=== PATIENT | male | born 1975 | race Caucasian/White ===

== ENCOUNTER 2016-12-28 16:28 | Emergency (ER) | payer OTHER ==
[2016-12-28 16:38] VITALS: BP 105/80; PULSE 78; RESP 18; TEMP 97.9
--- NOTE | 2016-12-28 16:47 | ED ---
General Adult HPI - General Chief complaint: Extremity Injury, Upper Stated complaint: Wrist Pain Time Seen by Provider: 12/28/16 16:38 Source: patient Mode of arrival: ambulatory Limitations: no limitations - History of Present Illness Initial comments: 41-year-old male patient presents to emergency department today for evaluation of left wrist pain. He states the pain radiates into his thumb. Patient denies any injury, states that it has been bothering him for the last 2 weeks. Patient states that it hurts when he presses over the area as well as when he grasps objects, or extends his wrist. 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 He denies any redness or swelling to the joint. He denies any fever, chills, rash or any other physical symptoms or concerns. - Related Data Previous Rx's Medication Instructions Recorded Ibuprofen [Motrin] 600 mg PO Q8HR PRN #30 tab 11/30/14 Dexamethasone 0.75 mg PO DIRECTED #12 tab 05/10/16 Famotidine [Pepcid] 20 mg PO BID #15 tablet 05/10/16 Ibuprofen [Motrin] 600 mg PO Q6HR PRN #20 tab 12/28/16 Allergies Allergy/AdvReac Type Severity Reaction Status Date / Time methylphenidate HCl Allergy Confusion Verified 12/28/16 16:37 [From Ritalin] Review of Systems ROS Statement: Those systems with pertinent positive or pertinent negative responses have been documented in the HPI. ROS Other: All systems not noted in ROS Statement are negative. Past Medical History Past Medical History: No Reported History History of Any Multi-Drug Resistant Organisms: None Reported Past Surgical History: No Surgical Hx Reported Past Psychological History: No Psychological Hx Reported Smoking Status: Current every day smoker Past Alcohol Use History: Rare Past Drug Use History: None Reported General Exam Limitations: no limitations General appearance: alert, in no apparent distress Respiratory exam: Present: normal lung sounds bilaterally. Absent: respiratory distress, wheezes, rales, rhonchi, stridor Cardiovascular Exam: Present: regular rate, normal rhythm, normal heart sounds. Absent: systolic murmur, diastolic murmur, rubs, gallop, clicks Extremities exam: Present: normal inspection, full ROM, normal capillary refill , other (No erythema, no swelling, no rash. Patient is tender over the radial head. Positive Domo test.). Absent: tenderness, pedal edema, joint swelling, calf tenderness Back exam: Present: normal inspection Neurological exam: Present: alert, oriented X3, CN II-XII intact Psychiatric exam: Present: normal affect, normal mood Skin exam: Present: warm, dry, intact, normal color. Absent: rash Course Vital Signs 12/28/16 16:32 Temperature 97.9 F Pulse Rate 78 Respiratory 18 Rate Blood Pressure 105/80 O2 Sat by Pulse 98 Oximetry Medical Decision Making - Medical Decision Making 41-year-old male patient presents to emergency department today for evaluation of atraumatic left wrist pain. Patient physical exam did reveal tenderness over the radial head, positive Domo test. Patient discharged home with a diagnosis of de Quervain's tenosynovitis, he will be given a prescription for ibuprofen and a prescription for a thumb spica splint. He is instructed to follow-up with orthopedics if anti-inflammatories and splinting does not improve his symptoms. Patient has seen physicians and orthopedic associates in the past and requests their office. Instructed to return immediately for any new, worsening, or concerning symptoms. Disposition Clinical Impression: De Quervain's tenosynovitis, left Disposition: HOME SELF-CARE Condition: Good Instructions: Tendinitis (ED) Additional Instructions: Take ibuprofen for pain control. Wear brace whenever possible. Follow-up with orthopedics if symptoms persist despite use of anti-inflammatories. Follow-up with primary care physician for recheck in one to 2 days. Prescriptions: Ibuprofen [Motrin] 600 mg PO Q6HR PRN #20 tab PRN Reason: Pain Referrals: Abdiel Lilly MD [Primary Care Provider] - 1-2 days Casa Alvarez DO [Doctor of Osteopathic Medicine] - 1-2 days Time of Disposition: 16:48
== END 2016-12-28 17:00 | disposition home or self-care (01) ==
LOC: EC 16:28
DX: M65.4 Radial styloid tenosynovitis [de Quervain] (principal); F17.200 Nicotine dependence, unspecified, uncomplicated; Z88.8 Allergy status to other drugs, medicaments and biological substances
CPT/HCPCS: 99283

== ENCOUNTER 2017-02-21 22:10 | Emergency (ER) | payer OTHER ==
[2017-02-21 22:37] VITALS: BP 110/68; PULSE 85; RESP 16; TEMP 99.7
--- NOTE | 2017-02-22 00:14 | ED ---
Skin/Abscess/FB HPI - General Chief complaint: Skin/Abscess/Foreign Body Stated complaint: L hand infection Time Seen by Provider: 02/21/17 23:47 Source: patient Mode of arrival: ambulatory Limitations: no limitations - History of Present Illness Initial comments: patient presents with swelling at base of left middle finger nailbed. Patient states it's red, swollen, tender to palpation. Patient states he has been poking it daily and it has drained pus. Patient states symptoms having ongoing for 1 week. 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 Patient denies numbness, weakness in the hand. Patient denies decreased range of motion in the finger. Patient denies diabetes or immunocompromise. Denies fevers, chills, nausea, vomiting. - Related Data Previous Rx's Medication Instructions Recorded Ibuprofen [Motrin] 600 mg PO Q8HR PRN #30 tab 11/30/14 Dexamethasone 0.75 mg PO DIRECTED #12 tab 05/10/16 Famotidine [Pepcid] 20 mg PO BID #15 tablet 05/10/16 Ibuprofen [Motrin] 600 mg PO Q6HR PRN #20 tab 12/28/16 Amoxicillin/Potassium Clav 1 tab PO Q12HR 5 Days 02/22/17 [Augmentin 875-125 Tablet] Allergies Allergy/AdvReac Type Severity Reaction Status Date / Time methylphenidate HCl Allergy Confusion Verified 02/21/17 22:37 [From Ritalin] Review of Systems ROS Statement: Those systems with pertinent positive or pertinent negative responses have been documented in the HPI. ROS Other: All systems not noted in ROS Statement are negative. Constitutional: Denies: fever, chills, weakness Respiratory: Denies: cough, dyspnea Cardiovascular: Denies: chest pain Endocrine: Denies: fatigue Gastrointestinal: Denies: abdominal pain, nausea, vomiting Skin: Reports: lesions, change in color Neurological: Denies: weakness, numbness, paresthesias Past Medical History Past Medical History: No Reported History History of Any Multi-Drug Resistant Organisms: None Reported Past Surgical History: No Surgical Hx Reported Past Psychological History: No Psychological Hx Reported Smoking Status: Current every day smoker Past Alcohol Use History: Rare Past Drug Use History: None Reported General Exam - General Exam Comments Initial Comments: sitting up on side of bed. No acute distress. Well-appearing. Calm, pleasant. Conversing normally. Limitations: no limitations General appearance: alert, in no apparent distress Head exam: Present: atraumatic, normocephalic Eye exam: Present: normal appearance, EOMI ENT exam: Present: normal external ear exam Neck exam: Present: normal inspection Respiratory exam: Present: normal lung sounds bilaterally Cardiovascular Exam: Present: regular rate, normal rhythm GI/Abdominal exam: Absent: distended Extremities exam: Present: full ROM, normal capillary refill. Absent: joint swelling Neurological exam: Present: alert, oriented X3 Psychiatric exam: Present: normal affect, normal mood Skin exam: Present: other (erythematous fluctuant swelling base of left middle finger nail and lateral side of fingernail. No active drainage.) Course Vital Signs 02/21/17 22:34 Temperature 99.7 F H Pulse Rate 85 Respiratory 16 Rate Blood Pressure 110/68 O2 Sat by Pulse 99 Oximetry Procedures - Incision & Drainage Consent Obtained: verbal consent Time Out Performed?: Yes Site: other (left index finger) Anesthetic Used: lidocaine 1% Amount (mLs): 4 I&D Cleaning Method: Alcohol Wipe Sterile Field Used?: Yes Scalpel Used: #15 Needle Aspiration Performed?: No I&D Drainage Obtained: Pus Culture Obtained?: No Patient Tolerated Procedure: well (Sterild gauze, bacitracin, applied. ) Medical Decision Making - Medical Decision Making his current exam findings consistent with paronychia. Patient was numbed with lidocaine, I&D drained significant amount of pus. Patient has no edema of the finger, able to flex the finger, range of motion in finger intact. Fingers neurovascularly intact. No medial tendon tenderness to palpation. tolerated I&D well. Wound dressed with bacitracin and Band-Aid. Patient given wound care instructions, including keeping wound clean and dry. Patient instructed to wear gloves at work, avoid prolonged periods of wearing gloves. Patient given prescription of antibiotics. Patient agrees to follow up with his primary care physician within 2 days for wound check. Disposition Clinical Impression: Paronychia Disposition: HOME SELF-CARE Condition: Good Instructions: Abscess Incision and Drainage (ED) Additional Instructions: Makes appointment with your primary care doctor within 2 days for wound check. Prescriptions: Amoxicillin/Potassium Clav [Augmentin 875-125 Tablet] 1 tab PO Q12HR 5 Days Referrals: Abdiel Lilly MD [Primary Care Provider] - 1-2 days
--- NOTE | 2017-02-22 00:42 | XR ---
EXAMINATION TYPE: XR finger LT DATE OF EXAM: 02/22/2017 COMPARISON: NONE HISTORY: Pain and swelling TECHNIQUE: 3 views middle finger FINDINGS: I see no fracture nor dislocation. There is no sign of radiopaque foreign body. There is soft tissue swelling at the nailbed. IMPRESSION: Soft tissue swelling. No fracture.
== END 2017-02-22 01:35 | disposition home or self-care (01) ==
LOC: EC 22:10
DX: L03.012 Cellulitis of left finger (principal); F17.200 Nicotine dependence, unspecified, uncomplicated; Z88.8 Allergy status to other drugs, medicaments and biological substances
CPT/HCPCS: 10060; 99283

== ENCOUNTER 2018-05-14 18:58 | Emergency (ER) | payer OTHER ==
[2018-05-14 19:30] VITALS: RESP 18
--- NOTE | 2018-05-14 20:17 | XR ---
EXAMINATION TYPE: XR chest 2V DATE OF EXAM: 05/14/2018 COMPARISON: 05/10/2016 HISTORY: Cold and cough TECHNIQUE: Frontal and lateral views of the chest are obtained. FINDINGS: Heart and mediastinum are normal. Lungs are clear. Diaphragm is normal. Bony thorax appear s normal. IMPRESSION: Normal chest. No change.
--- NOTE | 2018-05-14 20:45 | ED ---
URI HPI - General Source: patient Mode of arrival: ambulatory Limitations: no limitations <Joanie Tomas - Last Filed: 05/15/18 00:40> <Qiana Segura - Last Filed: 05/19/18 02:09> - General Chief Complaint: Upper Respiratory Infection Stated Complaint: Coughing Time Seen by Provider: 05/14/18 20:29 - History of Present Illness Initial Comments: 42-year-old male who denies past medical history per day smoker presented today for chief complaint of cough and congestion times one week. Patient denies any fever. He doesn't that to coughing for the past week, he states this increases at night. Patient denies any productive sputum production, fever or chills or rigors. Patient denies body aches. Patient does admit to sore throat he feels is secondary to cough. Patient denies any chest pain, dyspnea or dyspnea on exertion. Patient denies any hemoptysis. Patient denies abdominal pain, diarrhea, nausea, vomiting or any other social symptoms. Patient states that everyone in the household with similar symptoms. Remainder of ROS negative, patient denies any ear pain, sinus pressure numbness or tingling, dysuria or hematuria, constipation or diarrhea, headaches or visual changes, or any other complaints. Upon arrival patient is well-appearing, vital signs within acceptable limits. (Joanie Tomas) - Related Data Previous Rx's Medication Instructions Recorded Cyclobenzaprine [Flexeril] 10 mg PO TID PRN #15 tab 03/31/18 Ibuprofen [Motrin] 600 mg PO Q8HR PRN #30 tab 03/31/18 Benzonatate [Tessalon Perles] 100 mg PO TID 3 Days #9 cap 05/14/18 Ipratropium [place] 0.06%Nasal 2 spray EA NOSTRIL BID 4 Days #1 05/14/18 [Atrovent Nasal 0.06%] bottle Allergies Allergy/AdvReac Type Severity Reaction Status Date / Time methylphenidate HCl AdvReac Confusion Verified 05/14/18 19:30 [From Ritalin] Review of Systems ROS Other: All systems not noted in ROS Statement are negative. <Joanie Tomas - Last Filed: 05/15/18 00:40> ROS Other: All systems not noted in ROS Statement are negative. <Qiana Segura Last Filed: 05/19/18 02:09> ROS Statement: Those systems with pertinent positive or pertinent negative responses have been documented in the HPI. Past Medical History Past Medical History: No Reported History Additional Past Medical History / Comment(s): pt has chronic neck back pain History of Any Multi-Drug Resistant Organisms: None Reported Past Surgical History: No Surgical Hx Reported Past Psychological History: ADD/ADHD Smoking Status: Current every day smoker Past Alcohol Use History: Rare Past Drug Use History: None Reported <Joanie Tomas L - Last Filed: 05/15/18 00:40> General Exam Limitations: no limitations <Joanie Tomas L - Last Filed: 05/15/18 00:40> <Qiana Segura P - Last Filed: 05/19/18 02:09> - General Exam Comments Initial Comments: General: The patient is awake and alert, in no distress, and does not appear acutely ill. Eye: Pupils are equal, round and reactive to light, extra-ocular movements are intact. No nystagmus. There is normal conjunctiva bilaterally. No signs of icterus. Ears, nose, mouth and throat: There are moist mucous membranes and no oral lesions. Oropharynx was not erythematous, no tonsillar enlargement exudates or lesion. Uvula midline. Tympanic membranes are not erythematous no bulging retractions effusions or tympanic membrane perforation. External auditory canal is nonedematous or erythematous. No pain to palpation the mastoid. No sinus pressure of the frontal or maxillary sinuses. Postnasal drip noted. Neck: The neck is supple, there is no tenderness or JVD. No anterior cervical lymphadenopathy. Cardiovascular: There is a regular rate and rhythm. No murmur, rub or gallop is appreciated. Respiratory: Lungs are clear to auscultation, respirations are non-labored, breath sounds are equal. No wheezes, stridor, rales, or rhonchi. No signs of consolidation on examination. Audible dry cough on exam. Gastrointestinal: Soft, non-distended, non-tender abdomen without masses or organomegaly noted. There is no rebound or guarding present. No CVA tenderness. Bowel sounds are unremarkable. Musculoskeletal: Normal ROM, no tenderness. Strength 5/5. Sensation intact. Radial pulses equal bilaterally 2+. Neurological: A&O x 3. CN II-XII intact, There are no obvious motor or sensory deficits. Coordination appears grossly intact. Speech is normal. Skin: Skin is warm and dry and no rashes or lesions are noted. Psychiatric: Cooperative, appropriate mood & affect, normal judgment. (Joanie Tomas) Vital Signs 05/14/18 05/14/18 19:28 20:53 Temperature 98.2 F 97.6 F Pulse Rate 83 66 Respiratory 18 18 Rate Blood Pressure 112/57 126/72 O2 Sat by Pulse 96 98 Oximetry Medical Decision Making <Joanie Tomas - Last Filed: 05/15/18 00:40> <Qiana Segura - Last Filed: 05/19/18 02:09> - Medical Decision Making At this time I do feel patient has bronchitis, upper respiratory infection. No areas of consolidation noted on examination. Patient appears well, nontoxic. Examination revealed postnasal drip and clear rhinorrhea. Chest x-ray negative. Patient was given medications for symptomatic treatment. I do feel patient is stable for discharge with primary care follow-up in the next 1-2 days. Return parameters discussed at length the patient who verbalized understanding. Patient was discharged in stable condition after discussing the case in detail with attending physician. Who agreed impression and plan. Patient discharged in stable condition appearing well. Denied questions at this time. (Joanie Tomas) I was available for consultation in the emergency department. The history and physical exam were done by the midlevel provider. I was consulted for this patient's care. I reviewed the case with the midlevel provider and based on their presentation of the patient, I agree with the assessment, medical decision making and plan of care as documented. (Qiana Segura) Disposition Is patient prescribed a controlled substance at d/c from ED?: No Time of Disposition: 20:45 <Joanie Tomas - Last Filed: 05/15/18 00:40> <Qiana Segura - Last Filed: 05/19/18 02:09> Clinical Impression: Bronchitis, Upper respiratory disease Disposition: HOME SELF-CARE Condition: Good Instructions: Upper Respiratory Infection (ED), Acute Bronchitis (ED) Additional Instructions: Please use medication as discussed. Please follow-up with family doctor in the next 2 days. Please return to emergency room if the symptoms increase or worsen or for any other concerns. Prescriptions: Benzonatate [Tessalon Perles] 100 mg PO TID 3 Days #9 cap Ipratropium [place] 0.06%Nasal [Atrovent Nasal 0.06%] 2 spray EA NOSTRIL BID 4 Days #1 bottle Referrals: Abdiel Lilly MD [Primary Care Provider] - 1-2 days
[2018-05-14 20:54] VITALS: BP 126/72; PULSE 66; TEMP 97.6
== END 2018-05-14 21:05 | disposition home or self-care (01) ==
LOC: EC 18:58
DX: J40 Bronchitis, not specified as acute or chronic (principal); J06.9 Acute upper respiratory infection, unspecified; F17.200 Nicotine dependence, unspecified, uncomplicated; Z88.8 Allergy status to other drugs, medicaments and biological substances
CPT/HCPCS: 71046; 99283

== ENCOUNTER 2018-09-13 18:31 | Emergency (ER) | payer OTHER ==
[2018-09-13 18:37] VITALS: BP 124/83; PULSE 88; RESP 18; TEMP 98.1
[2018-09-13] MEDS ORDERED: SODIUM CHLORIDE 0.9% 1,000 ML IV STA (18:45)
[2018-09-13 18:51] LABS: Glucose,Whole Blood 145 mg/dL (75-99)
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
[2018-09-13 19:12] LABS: Basophils # (A) 0.1 k/uL (0-0.2); Basophils % (A) 1 %; Eosinophils # (A) 0.1 k/uL (0-0.7); Eosinophils % (A) 2 %; HCT 40.3 % (39.0-53.0); Lymphocytes # (A) 2.1 k/uL (1.0-4.8); Lymphocytes % (A) 27 %; MCH 30.9 pg (25.0-35.0); MCHC 34.7 g/dL (31.0-37.0); MCV 89.1 fL (80.0-100.0); Mean Platelet Volume 7.1; Monocytes # (A) 0.5 k/uL (0-1.0); Monocytes % (A) 6 %; Neutrophils % (A) 64 %; Platelet Count 247 k/uL (150-450); RBC 4.52 m/uL (4.30-5.90); RDW 13.3 % (11.5-15.5); WBC 7.9 k/uL (3.8-10.6)
[2018-09-13 19:20] LABS: Creatine Kinase 153 U/L (55-170)
[2018-09-13 19:22] LABS: ALT 26 U/L (21-72); AST 23 U/L (17-59); Albumin 4.4 g/dL (3.5-5.0); Alcohol <10 mg/dL; Alkaline Phosphatase 70 U/L (38-126); Amylase 51 U/L (30-110); Anion Gap 9 mmol/L; Blood Urea Nitrogen 12 mg/dL (9-20); Calcium 9.4 mg/dL (8.4-10.2); Carbon Dioxide 22 mmol/L (22-30); Chloride 107 mmol/L (98-107); Glucose 124 mg/dL (74-99); Lipase 78 U/L (23-300); Potassium 3.6 mmol/L (3.5-5.1); Sodium 138 mmol/L (137-145); Total Bilirubin 0.3 mg/dL (0.2-1.3)
[2018-09-13 19:23] LABS: INR 0.9 (<1.2); Partial Thromboplastin Time 23.3 sec (22.0-30.0)
[2018-09-13 19:32] LABS: Creatine Kinase MB 1.4 ng/mL (0.0-2.4); Troponin I <0.012 ng/mL (0.000-0.034)
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
== END 2018-09-13 21:00 | disposition home or self-care (01) ==
LOC: EC 18:31
DX: R07.89 Other chest pain (principal); R10.9 Unspecified abdominal pain; M25.552 Pain in left hip; F17.200 Nicotine dependence, unspecified, uncomplicated; Z88.8 Allergy status to other drugs, medicaments and biological substances; V86.05XA Driver of 3- or 4- wheeled all-terrain vehicle (ATV) injured in traffic accident, initial encounter; Y93.89 Activity, other specified; Y92.89 Other specified places as the place of occurrence of the external cause
CPT/HCPCS: 36415; 86900; 86901; 80053; 82150; 82550; 82553; 83605; 83690; 84484; 85025; 85610; 85730; 86850; 72170; 71045; 72125; 70450; 71260; 74177; 99285; 96360; G0480; Q9967; 80320

== ENCOUNTER → 2019-04-02 | Outpatient (CLI) | payer OTHER ==
--- NOTE | 2019-04-02 14:21 | XR ---
Right wrist and right hand HISTORY: Right wrist pain 4 views of the right wrist correlated to 3 views of the right hand Possible bone island present in the distal ulna, distal metacarpal. Bone mineralization, joint spaces and alignment otherwise maintained. No fracture or dislocation. IMPRESSION: No significant abnormality
== END | disposition home or self-care (01) ==
LOC: RADXRMAIN 12:04
PROVIDERS: ATTEND Physician Assistant
DX: M25.531 Pain in right wrist (principal)

== ENCOUNTER 2019-07-04 21:23 | Emergency (ER) | payer OTHER ==
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
--- NOTE | 2019-07-04 22:25 | XR ---
EXAMINATION TYPE: XR ankle complete RT DATE OF EXAM: 07/04/2019 COMPARISON: NONE HISTORY: Pain TECHNIQUE: 3 views FINDINGS: Ankle mortise is anatomic. There is soft tissue swelling over the lateral malleolus. I see no fracture. There is calcaneal spurring. IMPRESSION: Soft tissue swelling. No acute fracture seen. Calcification at the medial malleolus consi stent with old injury.
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
[2019-07-04 22:55] VITALS: BP 122/84; PULSE 80; RESP 18; TEMP 98.4
== END 2019-07-04 22:45 | disposition home or self-care (01) ==
LOC: EC 21:23
DX: S93.401A Sprain of unspecified ligament of right ankle, initial encounter (principal); F17.200 Nicotine dependence, unspecified, uncomplicated; Z88.8 Allergy status to other drugs, medicaments and biological substances; X50.1XXA Overexertion from prolonged static or awkward postures, initial encounter; Y92.89 Other specified places as the place of occurrence of the external cause; Y93.39 Activity, other involving climbing, rappelling and jumping off
CPT/HCPCS: 29515; 99283

== ENCOUNTER 2021-10-09 15:26 | Emergency (ER) | payer OTHER ==
[2021-10-09 16:44] VITALS: BP 115/72; PULSE 82; RESP 18; TEMP 98
--- NOTE | 2021-10-09 17:05 | XR ---
EXAMINATION TYPE: XR chest 2V DATE OF EXAM: 10/09/2021 COMPARISON: 09/13/2018 HISTORY: Chest pain TECHNIQUE: FINDINGS: Heart and mediastinum are normal. Lungs are clear. Diaphragm is normal. Bony thorax appears normal. IMPRESSION: Normal chest. No change.
== END 2021-10-09 19:16 | disposition left against medical advice (07) ==
LOC: EC 15:26
DX: Z53.21 Procedure and treatment not carried out due to patient leaving prior to being seen by health care provider (principal); R07.9 Chest pain, unspecified
CPT/HCPCS: 71046

== ENCOUNTER 2022-08-24 22:22 | Emergency (ER) | payer OTHER ==
--- NOTE | 2022-08-24 22:25 | ED ---
General Adult HPI <Mellissa Altman - Last Filed: 08/24/22 22:24> - General Source: patient, RN notes reviewed Mode of arrival: ambulatory Limitations: no limitations <Zhang Guillermo - Last Filed: 08/25/22 03:59> - General Stated complaint: Abdominal Pain Time Seen by Provider: 08/24/22 22:24 - History of Present Illness Initial comments: 46-year-old male with no significant past medical history presents the emergency department with a chief complaint of left lower quadrant abdominal pain for " a couple of days." Denies fever, chills, nausea vomiting. Denies melena or hematochezia. (Mellissa Altman) 46-year-old male presents emergency Department with chief complaint of abdominal pain. Patient states started the other day at work. He felt that he injured himself moving or lifting something. Patient states pain is worsened. Patient denies any change in bowel habits no dysuria no hematuria denies any nausea vomiting no prior abdominal surgeries no history of diverticulitis. (Zhang Guillermo) - Related Data Previous Rx's Medication Instructions Recorded Ibuprofen 800 mg PO TID #20 tablet 07/04/19 Amoxic-Pot Clav 875-125Mg 1 tab PO Q12HR #20 tab 08/25/22 [Augmentin 875-125] Allergies Allergy/AdvReac Type Severity Reaction Status Date / Time methylphenidate HCl AdvReac Confusion Verified 08/24/22 23:34 [From Ritalin] Review of Systems ROS Other: All systems not noted in ROS Statement are negative. <Mellissa Altman - Last Filed: 08/24/22 22:24> ROS Other: All systems not noted in ROS Statement are negative. <Zhang Guillermo - Last Filed: 08/25/22 03:59> ROS Statement: Those systems with pertinent positive or pertinent negative responses have been documented in the HPI. Past Medical History Past Medical History: No Reported History Additional Past Medical History / Comment(s): pt has chronic neck back pain History of Any Multi-Drug Resistant Organisms: None Reported Past Surgical History: No Surgical Hx Reported Past Psychological History: ADD/ADHD Smoking Status: Current every day smoker Past Alcohol Use History: Rare Past Drug Use History: None Reported <Mellissa Altman - Last Filed: 08/24/22 22:24> General Exam <Mellissa Altman - Last Filed: 08/24/22 22:24> General appearance: alert, in no apparent distress Head exam: Present: atraumatic, normocephalic, normal inspection Respiratory exam: Present: normal lung sounds bilaterally. Absent: respiratory distress, wheezes, rales, rhonchi, stridor Cardiovascular Exam: Present: regular rate, normal rhythm, normal heart sounds. Absent: systolic murmur, diastolic murmur, rubs, gallop, clicks GI/Abdominal exam: Present: soft, tenderness (Left lower quadrant), normal bowel sounds. Absent: distended, guarding, rebound, rigid Back exam: Absent: CVA tenderness (R), CVA tenderness (L) Neurological exam: Present: alert <Zhang Guillermo - Last Filed: 08/25/22 03:59> - General Exam Comments Initial Comments: Visual Physical Exam Vital signs reviewed General: Well-appearing, nontoxic, no acute distress. Head: Normocephalic, atraumatic Eyes: PERRLA, EOMI ENT: Airway patent Chest: Nonlabored breathing Skin: No visual rash, normal skin tone Neuro: Alert and oriented 3 Musculoskeletal: No gross abnormalities (Mellissa Altman) Course Vital Signs 08/24/22 23:31 Temperature 98.0 F Pulse Rate 85 Respiratory 20 Rate Blood Pressure 113/74 O2 Sat by Pulse 99 Oximetry Medical Decision Making - Lab Data Result diagrams: 08/24/22 23:46 08/24/22 23:46 <Zhang Guillermo - Last Filed: 08/25/22 03:59> - Medical Decision Making Was pt. sent in by a medical professional or institution (, PA, TELEPHONE CLEANER, urgent care, hospital, or assisted...) When possible be specific @ -No Did you speak to anyone other than the patient for history (EMS, parent, family, police, friend...)? What history was obtained from this source @ -No Did you review nursing and triage notes (agree or disagree)? Why? @ -I reviewed and agree with nursing and triage notes Were old charts reviewed (outside hosp., previous admission, EMS record, old EKG, old radiological studies, urgent care reports/EKG's, assisted records)? Report findings @ -No old charts were reviewed Differential Diagnosis (chest pain, altered mental status, abdominal pain women, abdominal pain men, vaginal bleeding, weakness, fever, dyspnea, syncope, headache, dizziness, GI bleed, back pain, seizure, CVA, palpatations, mental health, musculoskeletal)? @ -nDifferential Abdominal Pain Women: Appendicitis, Cholecystitis, diverticulosis, ischemic bowel, pancreatitis, hepatitis, UTI, gastroenteritis, AAA, incarcerated hernia, bowel obstruction, constipation, inflammatory bowel, hepatitis, peptic ulcer disease, splenic infarction, perforated viscus, vulvitis, ovarian torsion, PID, kidney stone, placenta abruption, this is not meant to be an all-inclusive listle EKG interpreted by me (3pts min.). @ -None X-rays interpreted by me (1pt min.). @ -None done CT interpreted by me (1pt min.). @ -CT shows evidence of inflammatory changes of the sigmoid colon still with i nfectious or inflammatory colitis U/S interpreted by me (1pt. min.). @ -None done What testing was considered but not performed or refused? (CT, X-rays, U/S, labs)? Why? @ -None What meds were considered but not given or refused? Why? @ -None Did you discuss the management of the patient with other professionals (professionals i.e. , PA, TELEPHONE CLEANER, lab, RT, psych nurse, social work associate, health insurance adjuster, teacher, corporate banking officer, family caseworker)? Give summary @ -No Was smoking cessation discussed for >3mins.? @ -No Was critical care preformed (if so, how long)? @ -No Were there social determinants of health that impacted care today? How? (Homelessness, low income, unemployed, alcoholism, drug addiction, transportation, low edu. Level, literacy, decrease access to med. care, fdc, rehab)? @ -No Was there de-escalation of care discussed even if they declined (Discuss DNR or withdrawal of care, Hospice)? DNR status @ -No What co-morbidities impacted this encounter? (DM, HTN, Smoking, COPD, CAD, Cancer, CVA, ARF, Chemo, Hep., AIDS, mental health diagnosis, sleep apnea, morbid obesity)? @ -None Was patient admitted / discharged? Hospital course, mention meds given and route, prescriptions, significant lab abnormalities, going to OR and other pe rtinent info. @ -Discharged patient has evidence of colitis on CT. This may be infectious patient was started on Augmentin, currently diet and follow-up with GI. Undiagnosed new problem with uncertain prognosis? @ -No Drug Therapy requiring intensive monitoring for toxicity (Heparin, Nitro, Insulin, Cardizem)? @ -No Were any procedures done? @ -No Diagnosis/symptom? @ -Colitis, abdominal pain Acute, or Chronic, or Acute on Chronic? @ -Acute Uncomplicated (without systemic symptoms) or Complicated (systemic symptoms)? @ -Uncomplicated Side effects of treatment? @ -No Exacerbation, Progression, or Severe Exacerbation? @ -No Poses a threat to life or bodily function? How? (Chest pain, [place], [place], pneumonia, PE, COPD, DKA, ARF, appy, cholecystitis, CVA, Diverticulitis, Homicidal, Suicidal, threat to staff... and all critical care pts) @ -No (Zhang Guillermo) - Lab Data Lab Results 08/24/22 08/24/22 08/25/22 Range/Units 23:46 23:46 01:20 WBC 8.6 (3.8-10.6) k/uL RBC 4.31 (4.30-5.90) m/uL Hgb 14.1 (13.0-17.5) gm/dL Hct 39.2 (39.0-53.0) % MCV 91.0 (80.0-100.0) fL MCH 32.6 (25.0-35.0) pg MCHC 35.8 (31.0-37.0) g/dL RDW 12.4 (11.5-15.5) % Plt Count 230 (150-450) k/uL MPV 7.3 Neutrophils % 52 % Lymphocytes % 38 % Monocytes % 5 % Eosinophils % 3 % Basophils % 0 % Neutrophils # 4.5 (1.3-7.7) k/uL Lymphocytes # 3.3 (1.0-4.8) k/uL Monocytes # 0.5 (0-1.0) k/uL Eosinophils # 0.2 (0-0.7) k/uL Basophils # 0.0 (0-0.2) k/uL Sodium 139 (137-145) mmol/L Potassium 4.0 (3.5-5.1) mmol/L Chloride 110 H (98-107) mmol/L Carbon Dioxide 23 (22-30) mmol/L Anion Gap 6 mmol/L BUN 14 (9-20) mg/dL Creatinine 0.93 (0.66-1.25) mg/dL Est GFR (CKD-EPI)AfAm >90 (>60 ml/min/1.73 sqM) Est GFR (CKD-EPI)NonAf >90 (>60 ml/min/1.73 sqM) Glucose 108 H (74-99) mg/dL Calcium 8.3 L (8.4-10.2) mg/dL Amylase 50 (30-110) U/L Lipase 128 (23-300) U/L Urine Color Yellow Urine Appearance Clear (Clear) Urine pH 6.0 (5.0-8.0) Ur Specific [place] 1.023 (1.001-1.035) Urine Protein Negative (Negative) Urine Glucose (UA) Negative (Negative) Urine Ketones Negative (Negative) Urine Blood Negative (Negative) Urine Nitrite Negative (Negative) Urine Bilirubin Negative (Negative) Urine Urobilinogen <2.0 (<2.0) mg/dL Ur Leukocyte Esterase Negative (Negative) Disposition <Mellissa Altman - Last Filed: 08/24/22 22:24> Is patient prescribed a controlled substance at d/c from ED?: No Time of Disposition: 03:48 <Zhang Guillermo - Last Filed: 08/25/22 03:59> Clinical Impression: Colitis Disposition: HOME SELF-CARE Condition: Stable Instructions (If sedation given, give patient instructions): Colitis (ED) Additional Instructions: Please return to the Emergency Department if symptoms worsen or any other concerns. Prescriptions: Amoxic-Pot Clav 875-125Mg [Augmentin 875-125] 1 tab PO Q12HR #20 tab Referrals: Mic Pulido DO [Primary Care Provider] - 1-2 days Olya Santana MD [STAFF PHYSICIAN] - 1-2 days
[2022-08-24 23:34] VITALS: BP 113/74; PULSE 85; RESP 20; TEMP 98
[2022-08-24 23:59] LABS: Basophils % (A) 0 %; Eosinophils # (A) 0.2 k/uL (0-0.7); Eosinophils % (A) 3 %; HCT 39.2 % (39.0-53.0); HGB 14.1 gm/dL (13.0-17.5); Lymphocytes # (A) 3.3 k/uL (1.0-4.8); Lymphocytes % (A) 38 %; MCH 32.6 pg (25.0-35.0); MCHC 35.8 g/dL (31.0-37.0); Mean Platelet Volume 7.3; Monocytes # (A) 0.5 k/uL (0-1.0); Monocytes % (A) 5 %; Neutrophils # (A) 4.5 k/uL (1.3-7.7); Neutrophils % (A) 52 %; Platelet Count 230 k/uL (150-450); RBC 4.31 m/uL (4.30-5.90); RDW 12.4 % (11.5-15.5); WBC 8.6 k/uL (3.8-10.6)
[2022-08-25 00:23] LABS: African American GFR (CKD) >90 (>60 ml/min/1.73 sqM); Amylase 50 U/L (30-110); Anion Gap 6 mmol/L; Blood Urea Nitrogen 14 mg/dL (9-20); Calcium 8.3 mg/dL (8.4-10.2); Carbon Dioxide 23 mmol/L (22-30); Chloride 110 mmol/L (98-107); Glucose 108 mg/dL (74-99); Lipase 128 U/L (23-300); Non-African American GFR(CKD) >90 (>60 ml/min/1.73 sqM); Sodium 139 mmol/L (137-145)
[2022-08-25 01:52] LABS: Appearance,Urine Clear (Clear); Bilirubin,Urine Negative (Negative); Blood,Urine Negative (Negative); Color,Urine Yellow; Glucose,Urine (UA) Negative (Negative); Ketones,Urine Negative (Negative); Leukocyte Esterase,Urine Negative (Negative); Nitrite,Urine Negative (Negative); Protein,Urine Negative (Negative); Specific Gravity,Urine 1.023 (1.001-1.035); Urobilinogen,Urine <2.0 mg/dL (<2.0)
--- NOTE | 2022-08-25 03:40 | CT ---
EXAM: CT Abdomen and Pelvis Without Intravenous Contrast CLINICAL HISTORY: ITS.REASON CT Reason: LLQ pain TECHNIQUE: Axial computed tomography images of the abdomen and pelvis without intravenous contrast. CTDI is 9.7 mGy and DLP is 589.6 mGy-cm. This CT exam was performed using one or more of the following dose reduction techniques: automated exposure control, adjustment of the mA and/or kV according to patient size, and/or use of iterative reconstruction technique. COMPARISON: No relevant prior studies available. FINDINGS: Lung bases: Unremarkable. No mass. No consolidation. ABDOMEN: Liver: Unremarkable. Gallbladder and bile ducts: Unremarkable. No calcified stones. No ductal dilation. Pancreas: Unremarkable. No ductal dilation. Spleen: Unremarkable. No splenomegaly. Adrenals: Unremarkable. No mass. Kidneys and ureters: Unremarkable. No obstructing stones. No hydronephrosis. Stomach and bowel: Subtle inflammatory changes involving a short segment of sigmoid colon the left lower quadrant. No obstruction. No mucosal thickening. PELVIS: Appendix: No findings to suggest acute appendicitis. Bladder: Unremarkable. No stones. Reproductive: Unremarkable as visualized. ABDOMEN and PELVIS: Intraperitoneal space: Unremarkable. No free air. No significant fluid collection. Bones/joints: No acute fracture. No dislocation. Soft tissues: Unremarkable. Vasculature: Unremarkable. No abdominal aortic aneurysm. Lymph nodes: Unremarkable. No enlarged lymph nodes. IMPRESSION: Sigmoid colitis likely infectious or inflammatory etiology.
== END 2022-08-25 03:54 | disposition home or self-care (01) ==
LOC: EC 22:22
DX: K52.9 Noninfective gastroenteritis and colitis, unspecified (principal); F17.200 Nicotine dependence, unspecified, uncomplicated; Z88.8 Allergy status to other drugs, medicaments and biological substances
CPT/HCPCS: 36415; 74176; 80048; 81003; 82150; 83690; 85025; 99284

== ENCOUNTER 2023-03-11 23:07 | Emergency (ER) | payer OTHER ==
[2023-03-12] VITALS: TEMP 98.2
--- NOTE | 2023-03-12 00:34 | ED ---
General Adult HPI - General Chief complaint: Upper Respiratory Infection Stated complaint: Cough, Congestion Time Seen by Provider: 03/12/23 00:22 Source: patient Mode of arrival: ambulatory Limitations: no limitations - History of Present Illness Initial comments: A 47-year-old male who presents to the ED with chief complaint of cough. Patient states for the past 3 days has had cough, congestion, headache. Since onset, reports worsening in severity. Denies chest pain or shortness of breath. No other complaints. - Related Data Previous Rx's Medication Instructions Recorded Ibuprofen 800 mg PO TID #20 tablet 07/04/19 Amoxic-Pot Clav 875-125Mg 1 tab PO Q12HR #20 tab 08/25/22 [Augmentin 875-125] Benzonatate [Tessalon Perles] 100 mg PO TID PRN #15 capsule 03/12/23 Allergies Allergy/AdvReac Type Severity Reaction Status Date / Time methylphenidate HCl AdvReac Confusion Verified 03/11/23 23:56 [From Ritalin] Review of Systems ROS Statement: Those systems with pertinent positive or pertinent negative responses have been documented in the HPI. ROS Other: All systems not noted in ROS Statement are negative. Past Medical History Past Medical History: No Reported History Additional Past Medical History / Comment(s): pt has chronic neck back pain History of Any Multi-Drug Resistant Organisms: None Reported Past Surgical History: No Surgical Hx Reported Past Psychological History: ADD/ADHD Smoking Status: Current every day smoker Past Alcohol Use History: Rare Past Drug Use History: None Reported General Exam Limitations: no limitations General appearance: alert, in no apparent distress Eye exam: Present: normal appearance ENT exam: Present: mucous membranes moist, other (edentulous) Respiratory exam: Present: normal lung sounds bilaterally Cardiovascular Exam: Present: regular rate, normal rhythm GI/Abdominal exam: Present: soft Neurological exam: Present: alert, oriented X3 Skin exam: Present: warm, dry Course Vital Signs 03/11/23 23:54 Temperature 98.2 F Pulse Rate 93 Respiratory 18 Rate Blood Pressure 115/66 O2 Sat by Pulse 95 Oximetry Medical Decision Making - Medical Decision Making Was pt. sent in by a medical professional or institution (, PA, SECURITY TEST ENGINEER, urgent care, hospital, or usp...) When possible be specific @ -No Did you speak to anyone other than the patient for history (EMS, parent, family, police, friend...)? What history was obtained from this source @ -No Did you review nursing and triage notes (agree or disagree)? Why? @ -I reviewed and agree with nursing and triage notes Were old charts reviewed (outside hosp., previous admission, EMS record, old EKG, old radiological studies, urgent care reports/EKG's, usp records)? Report findings @ -No old charts were reviewed Differential Diagnosis (chest pain, altered mental status, abdominal pain women, abdominal pain men, vaginal bleeding, weakness, fever, dyspnea, syncope, headache, dizziness, GI bleed, back pain, seizure, CVA, palpatations, mental health, musculoskeletal)? @ -Differential Dyspnea: Coronary syndrome, arrhythmia, tamponade, asthma, COPD, pulmonary embolism, pneumonia, pneumothorax, pulmonary effusion, anaphylaxis, diabetic ketoacidosis, flailed chest, pulmonary contusion, diaphragmatic rupture, anemia, neuromuscular, this is not meant to be an all-inclusive list. EKG interpreted by me (3pts min.). @ -As above X-rays interpreted by me (1pt min.). @ -Chest x-ray interpreted by me showing no evidence of pneumonia or other acute process. CT interpreted by me (1pt min.). @ -None done U/S interpreted by me (1pt. min.). @ -None done What testing was considered but not performed or refused? (CT, X-rays, U/S, labs)? Why? @ -None What meds were considered but not given or refused? Why? @ -None Did you discuss the management of the patient with other professionals (professionals i.e. , PA, SECURITY TEST ENGINEER, lab, RT, psych nurse, social service director, tailor helper, teacher, chief operations officer, caseworker intake)? Give summary @ -No Was smoking cessation discussed for >3mins.? @ -No Was critical care preformed (if so, how long)? @ -No Were there social determinants of health that impacted care today? How? (Homelessness, low income, unemployed, alcoholism, drug addiction, transportation, low edu. Level, literacy, decrease access to med. care, retirement, rehab)? @ -No Was there de-escalation of care discussed even if they declined (Discuss DNR or withdrawal of care, Hospice)? DNR status @ -No What co-morbidities impacted this encounter? (DM, HTN, Smoking, COPD, CAD, Cancer, CVA, ARF, Chemo, Hep., AIDS, mental health diagnosis, sleep apnea, morbid obesity)? @ -None Was patient admitted / discharged? Hospital course, mention meds given and route, prescriptions, significant lab abnormalities, going to OR and other pertinent info. @ -Discharge 47-year-old male presents to the ED with 2-3 days of congestion and cough. Cephid negative. Chest x-ray revealed no evidence of pneumonia or other acute process. At this time, vital signs stable afebrile. Patient discharged home in stable condition with prescription for Tessalon Perles. Discussed return precautions with patient verbalizes agreement. Undiagnosed new problem with uncertain prognosis? @ -No Drug Therapy requiring intensive monitoring for toxicity (Heparin, Nitro, Insulin, Cardizem)? @ -No Were any procedures done? @ -No Diagnosis/symptom? @ -Upper respiratory infection Acute, or Chronic, or Acute on Chronic? @ -Acute Uncomplicated (without systemic symptoms) or Complicated (systemic symptoms)? @ -Uncomplicated Side effects of treatment? @ -No Exacerbation, Progression, or Severe Exacerbation? @ -No Poses a threat to life or bodily function? How? (Chest pain, [place], [place], pneumonia, PE, COPD, DKA, ARF, appy, cholecystitis, CVA, Diverticulitis, Homicidal, Suicidal, threat to staff... and all critical care pts) @ -No - Lab Data Lab Results 03/11/23 03/11/23 Range/Units 00:36 00:36 Influenza Type A (PCR) Not Detected (Not Detectd) Influenza Type B (PCR) Not Detected (Not Detectd) RSV (PCR) Not Detected (Not Detectd) SARS-CoV-2 (PCR) Not Detected (Not Detectd) Group A Strep (PCR) NOT DETECTED (Not Detectd) Disposition Clinical Impression: Upper respiratory infection Disposition: HOME SELF-CARE Condition: Good Instructions (If sedation given, give patient instructions): Upper Respiratory Infection (ED) Additional Instructions: Please return to the Emergency Department if symptoms worsen or any other concerns. Prescriptions: Benzonatate [Tessalon Perles] 100 mg PO TID PRN #15 capsule PRN Reason: Cough Is patient prescribed a controlled substance at d/c from ED?: No Referrals: Mic Pulido DO [Primary Care Provider] - 1-2 days Time of Disposition: 02:14
--- NOTE | 2023-03-12 01:52 | XR ---
EXAM: XR Chest, 2 Views CLINICAL HISTORY: ITS.REASON XR Reason: cough TECHNIQUE: Frontal and lateral views of the chest. COMPARISON: 10/09/2021. FINDINGS: Lungs: Unremarkable. No consolidative change. Pleural space: Unremarkable. No pneumothorax. No pleural effusions. Heart: Unremarkable. No cardiomegaly. Mediastinum: Cardiomediastinal silhouette unremarkable. Bones/joints: The osseous structures and soft tissues are unremarkable. IMPRESSION: No active disease, similar to that noted on the previous study.
[2023-03-12 02:49] VITALS: BP 131/72; PULSE 104; RESP 19
== END 2023-03-12 02:35 | disposition home or self-care (01) ==
LOC: EC 23:07
DX: J06.9 Acute upper respiratory infection, unspecified (principal); F17.200 Nicotine dependence, unspecified, uncomplicated; Z88.8 Allergy status to other drugs, medicaments and biological substances; Z20.822 Contact with and (suspected) exposure to COVID-19
CPT/HCPCS: 71046; 87636; 87651; 99283

== ENCOUNTER 2023-10-10 14:13 | Emergency (ER) | payer OTHER ==
[2023-10-10 14:25] VITALS: BP 114/73; PULSE 87; RESP 16; TEMP 98.2
--- NOTE | 2023-10-10 14:39 | ED ---
General Adult HPI - General Chief complaint: Skin/Abscess/Foreign Body Stated complaint: R Foot Skin issues Time Seen by Provider: 10/10/23 14:24 Source: patient, RN notes reviewed, old records reviewed Mode of arrival: ambulatory Limitations: no limitations - History of Present Illness Initial comments: 48-year-old male with nonhealing wound to the right ankle. Patient states that this may have been where his shoe was rubbing during work. He states that he has been wearing sandals for the past 4 days and this did not seem to heal over that time. No fever. No history of diabetes. - Related Data Previous Rx's Medication Instructions Recorded Ibuprofen 800 mg PO TID #20 tablet 07/04/19 Amoxic-Pot Clav 875-125Mg 1 tab PO Q12HR #20 tab 08/25/22 [Augmentin 875-125] Benzonatate [Tessalon Perles] 100 mg PO TID PRN #15 capsule 03/12/23 Bacitracin Zinc Oint 1 applic TOPICAL TID #28 gm 10/10/23 Allergies Allergy/AdvReac Type Severity Reaction Status Date / Time methylphenidate HCl AdvReac Confusion Verified 03/11/23 23:56 [From Ritalin] Review of Systems ROS Statement: Those systems with pertinent positive or pertinent negative responses have been documented in the HPI. ROS Other: All systems not noted in ROS Statement are negative. Past Medical History Past Medical History: No Reported History Additional Past Medical History / Comment(s): pt has chronic neck back pain History of Any Multi-Drug Resistant Organisms: None Reported Past Surgical History: No Surgical Hx Reported Past Psychological History: ADD/ADHD Smoking Status: Current every day smoker Past Alcohol Use History: Rare Past Drug Use History: None Reported General Exam Limitations: no limitations General appearance: alert, in no apparent distress Head exam: Present: atraumatic, normocephalic Eye exam: Present: normal appearance, PERRL Respiratory exam: Absent: respiratory distress Cardiovascular Exam: Present: regular rate, normal rhythm Extremities exam: Present: other (Area of irritation and skin breakdown on the right medial malleolus. No erythema.) Course Vital Signs 10/10/23 14:18 Temperature 98.2 F Pulse Rate 87 Respiratory 16 Rate Blood Pressure 114/73 O2 Sat by Pulse 98 Oximetry Medical Decision Making - Medical Decision Making Was pt. sent in by a medical professional or institution (BRITTANY Pino, BUSINESS INTELLIGENCE CONSULTANT, urgent care, hospital, or assisted...) When possible be specific @ -No Did you speak to anyone other than the patient for history (EMS, parent, family, police, friend...)? What history was obtained from this source @ -No Did you review nursing and triage notes (agree or disagree)? Why? @ -I reviewed and agree with nursing and triage notes Were old charts reviewed (outside hosp., previous admission, EMS record, old EKG, old radiological studies, urgent care reports/EKG's, assisted records)? Report findings @ -No old charts were reviewed Differential Diagnosis diabetic ulceration, cellulitis, abscess EKG interpreted by me (3pts min.). @ -As above X-rays interpreted by me (1pt min.). @ -None done CT interpreted by me (1pt min.). @ -None done U/S interpreted by me (1pt. min.). @ -None done What testing was considered but not performed or refused? (CT, X-rays, U/S, labs)? Why? @ -None What meds were considered but not given or refused? Why? @ -None Did you discuss the management of the patient with other professionals (professionals i.e. BRITTANY Pino, BUSINESS INTELLIGENCE CONSULTANT, lab, RT, psych nurse, social service coordinator, manager investigations, teacher, sergeant of officers, immigration case worker)? Give summary @ -No Was smoking cessation discussed for >3mins.? @ -No Was critical care preformed (if so, how long)? @ -No Were there social determinants of health that impacted care today? How? (Homelessness, low income, unemployed, alcoholism, drug addiction, transportation, low edu. Level, literacy, decrease access to med. care, skilled nursing, rehab)? @ -No Was there de-escalation of care discussed even if they declined (Discuss DNR or withdrawal of care, Hospice)? DNR status @ -No What co-morbidities impacted this encounter? (DM, HTN, Smoking, COPD, CAD, Cancer, CVA, ARF, Chemo, Hep., AIDS, mental health diagnosis, sleep apnea, morbid obesity)? @ -None Was patient admitted / discharged? Hospital course, mention meds given and route, prescriptions, significant lab abnormalities, going to OR and other pertinent info. @ -There is area of skin breakdown on the right medial ankle this does appear to be a rough spot from his shoe. There is no surrounding signs of infection. The patient is instructed on local wound care and will follow-up with his primary care provider. If this is does not heal despite these measures further evaluation may be required. Undiagnosed new problem with uncertain prognosis? @ -No Drug Therapy requiring intensive monitoring for toxicity (Heparin, Nitro, Insulin, Cardizem)? @ -No Were any procedures done? @ -No Diagnosis/symptom? @ -[Nonhealing wound Acute, or Chronic, or Acute on Chronic? @ -Chronic Uncomplicated (without systemic symptoms) or Complicated (systemic symptoms)? @ -Default Side effects of treatment? @ -No Exacerbation, Progression, or Severe Exacerbation? @ -No Poses a threat to life or bodily function? How? (Chest pain, [place], [place], pneumonia, PE, COPD, DKA, ARF, appy, cholecystitis, CVA, Diverticulitis, Homicidal, Suicidal, threat to staff... and all critical care pts) @ -No Disposition Clinical Impression: Non-healing wound Disposition: HOME SELF-CARE Condition: Good Instructions (If sedation given, give patient instructions): Chronic Wound Care (ED) Prescriptions: Bacitracin Zinc Oint 1 applic TOPICAL TID #28 gm Is patient prescribed a controlled substance at d/c from ED?: No Referrals: Mic Pulido DO [Primary Care Provider] - 1-2 days Time of Disposition: 14:39
== END 2023-10-10 14:56 | disposition home or self-care (01) ==
LOC: EC 14:13
DX: S91.001A Unspecified open wound, right ankle, initial encounter (principal); F17.200 Nicotine dependence, unspecified, uncomplicated; Z88.8 Allergy status to other drugs, medicaments and biological substances; X58.XXXA Exposure to other specified factors, initial encounter
CPT/HCPCS: 99282

== ENCOUNTER 2023-11-23 13:11 | Emergency (ER) | payer OTHER ==
[2023-11-23 13:21] VITALS: BP 131/70; PULSE 90; RESP 16; TEMP 98
--- NOTE | 2023-11-23 13:36 | ED ---
Skin/Abscess/FB HPI - General Chief complaint: Skin/Abscess/Foreign Body Stated complaint: Rash L ankle Time Seen by Provider: 11/23/23 13:18 Source: patient, RN notes reviewed Mode of arrival: ambulatory Limitations: no limitations - History of Present Illness Initial comments: 48-year-old presents emergency department complaint of a rash to his right ankle states has been there for a long period of time. Patient states he been putting bacitracin on it with no changes. States if he does not breathing on it dries out and gets very itchy. Patient states that he has no other symptoms and states not spreading no other complaints. - Related Data Previous Rx's Medication Instructions Recorded Ibuprofen 800 mg PO TID #20 tablet 07/04/19 Amoxic-Pot Clav 875-125Mg 1 tab PO Q12HR #20 tab 08/25/22 [Augmentin 875-125] Benzonatate [Tessalon Perles] 100 mg PO TID PRN #15 capsule 03/12/23 Bacitracin Zinc Oint 1 applic TOPICAL TID #28 gm 10/10/23 Cephalexin [Keflex] 500 mg PO Q6HR #40 cap 11/23/23 Clotrimazole/Betameth Cream 1 applic TOPICAL BID #45 gm 11/23/23 [Lotrisone] Allergies Allergy/AdvReac Type Severity Reaction Status Date / Time methylphenidate HCl AdvReac Confusion Verified 11/23/23 13:21 [From Ritalin] Review of Systems ROS Statement: Those systems with pertinent positive or pertinent negative responses have been documented in the HPI. ROS Other: All systems not noted in ROS Statement are negative. Past Medical History Past Medical History: No Reported History Additional Past Medical History / Comment(s): pt has chronic neck back pain History of Any Multi-Drug Resistant Organisms: None Reported Past Surgical History: No Surgical Hx Reported Past Psychological History: ADD/ADHD Smoking Status: Current every day smoker Past Alcohol Use History: Rare Past Drug Use History: None Reported General Exam Limitations: no limitations General appearance: alert, in no apparent distress Head exam: Present: atraumatic, normocephalic, normal inspection Neck exam: Present: normal inspection. Absent: tenderness, meningismus, lymp hadenopathy Respiratory exam: Present: normal lung sounds bilaterally. Absent: respiratory distress, wheezes, rales, rhonchi, stridor Extremities exam: Present: other (Right ankle medial aspect there is erythematous scaly type rash) Course Vital Signs 11/23/23 13:20 Temperature 98.0 F Pulse Rate 90 Respiratory 16 Rate Blood Pressure 131/70 O2 Sat by Pulse 98 Oximetry Medical Decision Making - Medical Decision Making Was pt. sent in by a medical professional or institution (BRITTANY Pino, [employer]AL RE[employer]ER, urgent care, hospital, or long term...) When possible be specific @ -No Did you speak to anyone other than the patient for history (EMS, parent, family, police, friend...)? What history was obtained from this source @ -No Did you review nursing and triage notes (agree or disagree)? Why? @ -I reviewed and agree with nursing and triage notes Were old charts reviewed (outside hosp., previous admission, EMS record, old EKG, old radiological studies, urgent care reports/EKG's, long term records)? Report findings @ -No old charts were reviewed Differential Diagnosis (chest pain, altered mental status, abdominal pain women, abdominal pain men, vaginal bleeding, weakness, fever, dyspnea, syncope, headache, dizziness, GI bleed, back pain, seizure, CVA, palpatations, mental health, musculoskeletal)? @ -Tinea, Cellulitis, ulceration EKG interpreted by me (3pts min.). @ -None X-rays interpreted by me (1pt min.). @ -None done CT interpreted by me (1pt min.). @ -None done U/S interpreted by me (1pt. min.). @ -None done What testing was considered but not performed or refused? (CT, X-rays, U/S, labs)? Why? @ -None What meds were considered but not given or refused? Why? @ -None Did you discuss the management of the patient with other professionals (professionals i.e. BRITTANY Pino, [employer]AL RE[employer]ER, lab, RT, psych nurse, social services assistant, enterprise solutions architect, teacher, gift officer, director of casework services)? Give summary @ -No Was smoking cessation discussed for >3mins.? @ -No Was critical care preformed (if so, how long)? @ -No Were there social determinants of health that impacted care today? How? (Homelessness, low income, unemployed, alcoholism, drug addiction, transportation, low edu. Level, literacy, decrease access to med. care, [facility], rehab)? @ -No Was there de-escalation of care discussed even if they declined (Discuss DNR or withdrawal of care, Hospice)? DNR status @ -No What co-morbidities impacted this encounter? (DM, HTN, Smoking, COPD, CAD, Ca ncer, CVA, ARF, Chemo, Hep., AIDS, mental health diagnosis, sleep apnea, morbid obesity)? @ -None Was patient admitted / discharged? Hospital course, mention meds given and route, prescriptions, significant lab abnormalities, going to OR and other pertinent info. @ -Discharge patient has had ongoing rashes right ankle this may be fungal in nature started on Lotrisone follow-up with dermatology Undiagnosed new problem with uncertain prognosis? @ -No Drug Therapy requiring intensive monitoring for toxicity (Heparin, Nitro, Insulin, Cardizem)? @ -No Were any procedures done? @ -No Diagnosis/symptom? @ -Tinea corpus, cellulitis Acute, or Chronic, or Acute on Chronic? @ -Acute Uncomplicated (without systemic symptoms) or Complicated (systemic symptoms)? @ -Uncomplicated Side effects of treatment? @ -No Exacerbation, Progression, or Severe Exacerbation? @ -No Poses a threat to life or bodily function? How? (Chest pain, [place], [place], pneumonia, PE, COPD, DKA, ARF, appy, cholecystitis, CVA, Diverticulitis, Homicidal, Suicidal, threat to staff... and all critical care pts) @ -No Disposition Clinical Impression: Tinea corporis, Cellulitis Disposition: HOME SELF-CARE Condition: Stable Instructions (If sedation given, give patient instructions): Tinea Corporis (ED) Additional Instructions: Please return to the Emergency Department if symptoms worsen or any other concerns. Prescriptions: Cephalexin [Keflex] 500 mg PO Q6HR #40 cap Clotrimazole/Betameth Cream [Lotrisone] 1 applic TOPICAL BID #45 gm Is patient prescribed a controlled substance at d/c from ED?: No Referrals: None,Stated [Primary Care Provider] - 1-2 days Nicolette Junior MD [STAFF PHYSICIAN] - 1-2 days Time of Disposition: 13:36
== END 2023-11-23 14:38 | disposition home or self-care (01) ==
LOC: EC 13:11
DX: B35.4 Tinea corporis (principal); L03.116 Cellulitis of left lower limb; F17.200 Nicotine dependence, unspecified, uncomplicated; Z88.8 Allergy status to other drugs, medicaments and biological substances
CPT/HCPCS: 99282